=== PATIENT | male | born 1965 | race Caucasian/White ===

== ENCOUNTER 2016-08-18 10:17 | Emergency (ER) | payer OTHER ==
[2016-08-18 10:37] VITALS: BP 141/71
[2016-08-18] MEDS ORDERED: predniSONE 20 MG TABLET PO ONE (11:00)
[2016-08-18] MEDS ORDERED: predniSONE 20 MG TABLET ONE (11:07)
--- NOTE | 2016-08-18 11:08 | ERNOTE ---
Allergy Symptoms - ER Presenting Symptoms: skin rash, itching Time Seen by Provider: 08/18/16 10:47 Source: patient Immunizations: IMMUNIZATION HX Immunizations Up to Date Yes History of Influenza Vaccine No Hx Pneumococcal Vaccination No Allergies/Adverse Reactions: Allergies No Known Allergies Allergy (Unverified 03/10/16 09:38) Home Medications: HOME MEDICATIONS Pregabalin [Lyrica] 200 mg PO TID 11/11/15 [Last Taken Unknown] Morphine Sulfate/Naltrexone [Embeda ER 50-2 mg Capsule] 1 each PO Q12H 03/05/16 [Last Taken Unknown] Nortriptyline HCl [Pamelor] 25 mg PO TID 03/05/16 [Last Taken Unknown] Famotidine [Pepcid] 20 mg PO BID #10 tablet 08/18/16 [Last Taken Unknown] hydrOXYzine PAMOATE [Vistaril] 50 mg PO TID #20 capsule 08/18/16 [Last Taken Unknown] predniSONE [Deltasone] 20 mg PO BID #10 tablet 08/18/16 [Last Taken Unknown] - History of Present Illness Narrative: Patient changed his laundry detergent approximately week ago and started to develop an urticarial rash all over his extremities legs arms and chest and back. Patient states that the rash is very itchy. Timing: Present: constant Treatment HEAD BOOKKEEPER:: by patient, [facility] Location skin rash/itching: Present: diffuse Identified cause?: No - possibly laundry detergent Similar symptoms previously: Yes Review of Systems - Review of Systems Constitutional: Present: See HPI EYE: Present: no symptoms reported ENT: Present: no symptoms reported Respiratory: Present: no symptoms reported Cardiology: Present: no symptoms reported Gastrointestinal/Abdominal: Present: no symptoms reported Genitourinary: Present: no symptoms reported Musculoskeletal: Present: no symptoms reported Skin: Present: rash Neurological: Present: no symptoms reported Endocrine: Present: no symptoms reported Hematologic/Lymphatic: Present: no symptoms reported Psych: Present: no symptoms reported - Patient's Past Medical History Patient History - Medical: Chronic Pain, Other Patient History - Cardiac/Respiratory: No pertinent hx Patient History - Cancer: No Hx of Cancer Patient History - Surgical Procedures: Appendectomy, Other Patient History - Other: None - Family History Father Family History - Medical: , No pertinent hx Family History - Cardiac/Respiratory: Myocardial Infarction Grandfather-Paternal Family History - Medical: , No pertinent hx Family History - Cardiac/Respiratory: No pertinent hx Uncle Family History - Medical: , No pertinent hx Family History - Cardiac/Respiratory: No pertinent hx - Social History Living Situations: alone Abuse History: No History of abuse Psych History: No pertinent hx Smoking Status: Current every day smoker Have you smoked in the past 12 months: Yes Patient requests Smoking Cessation Consult: No Initiate information on Smoking Cessation: No Alcohol Use: none Drug Use: none - Immunizations Immunizations Up to Date: Yes Hx Pneumococcal Vaccination: No History of Influenza Vaccine: No Physical Exam - Physical Exam General Appearance: Present: wd/wn, alert, moderate distress Eye Exam: Normal inspection: bilateral, PERRL: bilateral Ears, Nose, Throat: Present: normal ENT inspection, H, normal pharynx Neck: Present: normal inspection, nontender Respiratory: Present: no respiratory distress, normal breath sounds, no accessory muscle use, chest nontender, lungs clear Cardiovascular/Chest: Present: regular rate, rhythm, no murmur, normal peripheral pulses Gastrointestinal/Abdominal: Present: normal bowel sounds, nontender, nondistended, soft, no organomegaly Rectal Exam: Present: deferred Back Exam: Present: normal inspection, normal range of motion Extremity Exam: Present: normal inspection, non-tender, no edema, normal range of motion Neurological Exam: Present: alert, oriented, normal mood/affect Skin Exam: Present: skin rash - urticarial in nature Lymphatic Exam: Present: no adenopathy ED Progress - Vital Signs Patient's Vital Signs:: I have reviewed the patient's vital signs. Vital Signs: Vital Signs 08/18/16 08/18/16 10:31 10:37 Temperature 36.4 C L Pulse Rate 88 Respiratory 15 15 Rate Blood Pressure 141/71 O2 Sat by Pulse 98 98 Oximetry - Progress/Reassessment Chief Complaint: Allergic Reaction Plan - Plan Plan: Patient will be restarted on prednisone and Pepcid and Vistaril for his allergic reaction and he will change his laundry detergent back to something different than what he's been using. Departure Clinical Impression: Urticaria - Departure Disposition: Home self-care Condition: Good Instructions: Hives, Vvgo-vo-Trvy Prescriptions: Famotidine [Pepcid] 20 mg PO BID #10 tablet hydrOXYzine PAMOATE [Vistaril] 50 mg PO TID #20 capsule predniSONE [Deltasone] 20 mg PO BID #10 tablet
--- OUTSIDE RECORDS SUMMARY | 2016-08-18 11:27 | XMS REPORT | Continuity of Care Document ---
:1965 Author Organization [employer] Address [place] [address] Care Team Providers Name Role Phone Jeronimo Garcia Primary Care Provider [phone] Source Comments This disclosure is being made pursuant to the [employer] program and maynot contain all information available regarding this patient.[employer] Active Allergies and Adverse Reactions No Known Allergies Current Medications Be aware that medications may not be up to date as of this document. Alwaysverify current medications with the patient. Prescription Sig. Disp. Refills Start Date End Date Status pregabalin (LYRICA) 200 Take 200 mg by Active MG capsule mouth 3 (three) times daily. Morphine-Naltrexone 50-2 Take 1 capsule by Active MG CPCR mouth 2 (two) times daily. nortriptyline (PAMELOR) Take 10 mg by mouth Active 10 MG capsule nightly. 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 Social History Tobacco Use Types Packs/Day Years Used Date Current Every Day Smoker 0.5 25 Alcohol Use Drinks/Week oz/Week Comments No Last Filed Vital Signs Vital Sign Reading Time Taken Blood Pressure 140/82 06/03/2015 4:00 PM [employer] Pulse 96 06/03/2015 4:00 PM [employer] Temperature 36.4 C (97.6 F) 06/03/2015 4:00 PM [employer] Respiratory Rate 16 06/03/2015 4:00 PM [employer] Height 1.651 m (5' 5") 06/03/2015 12:02 PM [employer] Weight 71.215 kg (157 lb) 06/03/2015 12:02 PM [employer] Body Mass Index 26.13 06/03/2015 12:02 PM [employer] Oxygen Saturation 98% 06/03/2015 12:02 PM [employer] Plan of Care Health Maintenance Due Date Last Done Comments Tetanus/Pertussis (1 - Tdap) 1982 Colonoscopy 2013 Well Adult Visit 2013 Retired-INFLUENZA VACCINE 01/09/2016 Results from Last 3 Months Not on file
== END 2016-08-18 11:14 | disposition home or self-care (01) ==
LOC: ER 10:17
DX: L50.9 Urticaria, unspecified (principal); Z72.0 Tobacco use; G89.29 Other chronic pain